=== PATIENT | male | born 1985 | race African-American/Black ===

== ENCOUNTER 2022-07-09 19:37 | Emergency (ER) | payer SELFPAY ==
[~2022-07-09] VITALS: Ht 165.1 cm; Wt 77.0 kg
[2022-07-09] MEDS ORDERED: MORPHINE SULFATE 4 MG/ML CPJ (NOT FOR IM USE) IV STA (20:22)
[2022-07-09] MEDS ORDERED: ONDANSETRON HCL 4MG/2ML INJ IV STA (20:22)
[2022-07-09] MEDS ORDERED: BACITRACIN ZINC OINT UDPKT TOP ONE (20:30)
[2022-07-09] MEDS ORDERED: SODIUM CHLORIDE 0.9% 1,000 ML IV ONE (20:30)
[2022-07-09] MEDS ORDERED: LIDOCAINE HCL/PF 1% 10 MG/ML 5ML VIAL INFIL ONE (20:30)
[2022-07-09] MEDS ORDERED: TETANUS, DIPHTHERIA, PERTUSSIS VAC/PF 0.5ML (>10YR OLD) IM ONE (20:30)
[2022-07-09] MEDS ORDERED: MORPHINE SULFATE 4 MG/ML CPJ (NOT FOR IM USE) IV ONE (21:30)
[2022-07-09] MEDS ORDERED: HYDROCODONE/ACETAMINOPHEN 5/325MG TABLET PO ONE (22:30)
[2022-07-09] MEDS ORDERED: IBUP-2028 MT (23:14)
[2022-07-09] MEDS ORDERED: HYDR-4001 MT (23:14)
[2022-07-09 23:45] VITALS: BP 142/75
== END 2022-07-10 04:18 | disposition home or self-care (01) ==
LOC: ER 19:50
DX: S62.314A Displaced fracture of base of fourth metacarpal bone, right hand, initial encounter for closed fracture (principal); M25.531 Pain in right wrist; V00.841A Fall from standing electric scooter, initial encounter; Y93.I9 Activity, other involving external motion; Y92.488 Other paved roadways as the place of occurrence of the external cause
CPT/HCPCS: 29125; 73110; 73130; 90471; 90715; 96361; 96374; 96375; 96376; 99284; J2270; J2405; J3490; J7030; Z7610